=== PATIENT | male | born 1995 | race Caucasian/White ===

== ENCOUNTER 2017-07-24 22:18 | Emergency (ER) | payer MEDICAID, SELFPAY ==
[2017-07-24 22:19] VITALS: BP 132/73; PULSE 116; RESP 18; TEMP 37.3; O2SAT 97; BMI 32.1
--- NOTE | 2017-07-24 22:56 | ED.VISSUMM ---
- ER Visit Summary Date of Service: 07/24/17 Chief Complaint: Fever History of Present Illness: The patient is a 21 M who presents with a fever that began today when he woke up around noon. Patient is on clindamycin for a dental infection. Patient states his fever was up to 101.7. Patient admits to a cough and some shortness of breath. Patient also admits to some pain in his chest. Patient denies any dysuria or hematuria. Patient denies any nausea or vomiting. Physical Examination: Vital signs are stable except for tachycardia of 116. Patient is in no acute distress. Patient is afebrile here. Oral mucosa is pink and moist. There is a dental carry over the right upper first molar there is some mild gingival edema around the tooth. There is no discharge or drainage. Oropharynx shows some erythema over the tonsils. There is no exudate. Neck is supple. Trachea is midline. There is no JVD or lymphadenopathy appreciated. Heart was regular and tachycardic. Lungs are clear and equal bilaterally. There is good respiratory effort noted. Abdomen is soft nontender. Cranial nerves II through XII are intact. There are no focal motor or sensory deficits noted. The remaining physical exam is within normal limits. Test Results: CBC and basic metabolic profile were obtained and were all within normal limits. PA and lateral chest x-ray was obtained and did not show any acute cardiopulmonary process. Rapid strep test was obtained and was negative. Emergency Department Course and Treatment: Patient was given IV fluids here in the emergency department. Patient was also given an albuterol aerosol here. Patient felt better on reevaluation. Patient was instructed to continue his clindamycin as prescribed until gone. Patient was instructed to follow-up with his primary care physician and dentist as scheduled. Patient understood and was agreeable with the plan. All questions were answered. Disposition: Discharge home Impression: Viral illness This note was generated with [employer] dictation software. It may contain incorrect words, spelling, and punctuation that were not noted in review of the chart prior to signing ED Disposition - Plan for ED Patient: Disposition: Home or Assisted Living Chief Complaint: General Illness Diagnosis: Viral illness
[2017-07-24] MEDS: 0.9% Normal Saline 1,000 ML 1000 ML IV (23:03)
[2017-07-24 23:17] LABS: Absolute Lymphocyte Count 0.66 X10^3/ul (0.83-4.51); Basophil# 0.01 X10^3/uL; Basophil% 0.2 % (0-1); Eosinophil# 0.05 X10^3/uL; Eosinophils% 0.9 % (0-5); Hematocrit 39.7 % (40-54); Hemoglobin 13.8 g/dl (13.0-16.5); Lymphocyte # 0.66 X10^3/ul (4.0); Lymphocyte % 12.2 % (19-41); Mean Corp Hgb Conc 34.8 g/gl (32-36); Mean Corpuscular Hgb 29.9 pg (27.0-32.0); Mean Corpuscular Volume 86.1 fL (80-94); Mean Platelet Vol. 9.8 fl (6.2-12.0); Monocyte# 0.63 X10^3/uL; Monocyte% 11.7 % (0-10); Neutrophil # 4.04 X10^3/uL (2.7-7.7); Neutrophil % 74.8 % (47-70); POSITIVE COUNT NO; POSITIVE DIFFERENTIAL NO; POSITIVE MORPHOLOGY NO; Platelet Count 176 K/mm3 (150-450); RBC Distribution Width CV 12.8 % (11.6-14.6); RBC Distribution Width SD 40.3 fl (35.1-43.9); Red Blood Count 4.61 M/mm3 (4.6-6.2); White Blood Count 5.4 K/mm3 (4.4-11.0)
--- NOTE | 2017-07-24 23:17 | RAD_ITS ---
STUDY: X-RAY CHEST REASON FOR EXAM: Male, 21 years old. Cough TECHNIQUE: Frontal and lateral views of the chest. COMPARISON: None. FINDINGS: The lungs are clear and expanded. There is no demonstrated pleural abnormality. Normal size heart. Normal mediastinum and reji. Normal visualized pulmonary arteries. Normal visualized aortic arch and descending thoracic aorta. Normal visualized thoracic spine. Normal visualized ribs, clavicles, and shoulders. There is no demonstrated abnormality of the visualized soft tissue structures of the upper abdomen. RAD/Chest PA and Lateral IMPRESSION: Normal x-ray examination of the chest. Electronically Signed: Ramirez Guzman MD at 23:34 EDT , Service support ,
[2017-07-24 23:32] LABS: Anion Gap 10 (5-15); BUN 13 mg/dL (7-18); BUN/Creat Ratio 11.9 RATIO (10-20); Calcium,Total 8.9 mg/dL (8.5-10.1); Chloride 108 mmol/L (98-107); Creatinine, Serum 1.09 mg/dL (0.70-1.30); EST Glomerular Filtration Rate 89 mL/min (>60); Est Glom Filt Rate - Afr Amer 107 mL/min (>60); Estimated Creatinine Clearance 122.55 ml/min; Glucose 92 mg/dL (74-106); Potassium 3.5 mmol/L (3.5-5.1); Sodium Level 139 mmol/L (136-145)
[2017-07-25] VITALS: PULSE 100; RESP 16
[2017-07-25] MEDS: Albuterol 2.5 MG/3 ML VIAL.NEB. INHALATION
--- NOTE | 2017-07-25 00:04 | ED.VISSUMM ---
- ER Visit Summary Date of Service: 07/25/17 Chief Complaint: [] History of Present Illness: The patient is a 21 M [] Physical Examination: [] Test Results: [] Emergency Department Course and Treatment: [] Treatment Plan: [] Disposition: [] Impression: [] This note was generated with [employer] dictation software. It may contain incorrect words, spelling, and punctuation that were not noted in review of the chart prior to signing ED Disposition - Plan for ED Patient: Disposition: Home or Assisted Living Chief Complaint: General Illness Diagnosis: Viral illness Instructions: ED Cavity Dental, ED Fever Control Referrals: Maged Hernandez MD [Primary Care Provider] -
[2017-07-25 00:16] VITALS: BP 144/85; PULSE 92; RESP 16; TEMP 36.9; O2SAT 96
== END 2017-07-25 00:17 | disposition home or self-care (01) ==
PROVIDERS: Emergency Provider Emergency Medicine; Family Provider Family Medicine; PCP Family Medicine
DX: B34.9 Viral infection, unspecified (principal); F17.200 Nicotine dependence, unspecified, uncomplicated; K04.7 Periapical abscess without sinus
CPT/HCPCS: 71046; 80048; 85025; 87880; 94640; 99283; J7030

== ENCOUNTER 2018-08-26 08:50 | Emergency (ER) | payer SELFPAY ==
[2018-08-26 08:51] VITALS: BP 160/91; PULSE 88; RESP 17; TEMP 36.5; O2SAT 98; BMI 42.0
--- NOTE | 2018-08-26 09:09 | CT_ITS ---
STUDY: CTA OF THE BRAIN REASON FOR EXAM: Male, 22 years old. Two-week history of headaches. Lightheadedness. RADIATION DOSAGE (If Supplied By Facility): CTDIvol = ( 27.51 ) mGy, DLP = ( 1222.42 ) mGycm TECHNIQUE: CT angiography was performed with a multi-detector CT scanner. Data acquisition was obtained from the skull base through the vertex following intravenous administration of 100 IV Isovue 370. MIP images were reconstructed from the axial data set. Post-processing of the angiographic images was performed, with multiplanar reformation and 3D reconstruction. Individualized dose optimization techniques were used for this CT. COMPARISON: None. FINDINGS: Normal bilateral petrous carotid arteries. Normal right cavernous carotid artery with a normal supraclinoid bifurcation. Normal left cavernous carotid artery with a normal supraclinoid bifurcation. Normal right A1 segments of the anterior cerebral artery. Normal left A1 segments of the anterior cerebral artery. Normal intact anterior communicating artery (ACOM). Normal bilateral A2 segments of the anterior cerebral arteries. Normal right M1 and M2 segments of the middle cerebral arteries, with a normal M1 bifurcation. Normal left M1 and M2 segments of the middle cerebral arteries, with a normal M1 bifurcation. Normal right posterior communicating artery (PCOM). Normal left posterior communicating artery (PCOM). Normal bilateral vertebral arteries. Normal basilar artery with a normal basilar bifurcation. The visualized bilateral superior cerebellar (SCA) arteries are normal. Normal bilateral P1, P2 and visualized P3 segments of the posterior cerebral arteries. There is no demonstrated aneurysm of the [place]. Mucosal thickening of the maxillary sinuses bilaterally. Focal mucosal thickening measuring 5.7 mm along the anterior wall of the right sphenoid sinus. Mucosal thickening of the ethmoid sinuses. CT/CTA Head W/WO Contrast IMPRESSION: Normal [place] without a demonstrated aneurysm or hemodynamically significant stenosis. Electronically Signed: Sergio Rebollar, at 10:39 EDT , Service support ,
[2018-08-26] MEDS: 0.9% Normal Saline 1,000 ML 1000 ML IV (09:39)
[2018-08-26] MEDS: Ketorolac 30 MG/ML Syringe IV (09:40)
[2018-08-26] MEDS: Ondansetron 4 MG/2 ML Vial IV (09:40)
[2018-08-26 09:50] LABS: Absolute Lymphocyte Count 2.31 X10^3/ul (0.83-4.51); Absolute Neutrophil Count 3.7 X10^3/uL (2.0-7.7); Basophil# 0.02 X10^3/uL; Basophil% 0.3 % (0-1); Eosinophil# 0.31 X10^3/uL; Eosinophils% 4.6 % (0-5); Hematocrit 43.5 % (40-54); Hemoglobin 15.1 g/dl (13.0-16.5); Lymphocyte # 2.31 X10^3/ul (4.0); Lymphocyte % 34.2 % (19-41); Mean Corp Hgb Conc 34.7 g/gl (32-36); Mean Corpuscular Hgb 29.7 pg (27.0-32.0); Mean Corpuscular Volume 85.5 fL (80-94); Mean Platelet Vol. 9.8 fl (6.2-12.0); Monocyte# 0.46 X10^3/uL; Monocyte% 6.8 % (0-10); Neutrophil # 3.65 X10^3/uL (2.7-7.7); Platelet Count 192 K/mm3 (150-450); RBC Distribution Width CV 13.1 % (11.6-14.6); Red Blood Count 5.09 M/mm3 (4.6-6.2); White Blood Count 6.8 K/mm3 (4.4-11.0)
[2018-08-26 09:51] LABS: POSITIVE COUNT NO; POSITIVE DIFFERENTIAL NO; POSITIVE MORPHOLOGY NO
[2018-08-26 10:03] LABS: Anion Gap 6 (5-15); BUN 11 mg/dL (7-18); BUN/Creat Ratio 12.2 RATIO (10-20); Calcium,Total 8.6 mg/dL (8.5-10.1); Chloride 108 mmol/L (98-107); EST Glomerular Filtration Rate 109 mL/min (>60); Est Glom Filt Rate - Afr Amer 132 mL/min (>60); Estimated Creatinine Clearance 147.15 ml/min; Glucose 94 mg/dL (74-106); Sodium Level 139 mmol/L (136-145)
--- NOTE | 2018-08-26 11:07 | ED.DCSUM_ITS ---
- ER Visit Summary Date of Service: 08/26/18 Chief Complaint: Headache History of Present Illness: The patient is a 22 M with a 2-week history of migraine type headache is been waxing and waning. Patient states he used to have migraines in the past but has not had for quite some time. He does report light sensitivity, blurred vision, and nausea. He states there are several times where the pain will suddenly get worse after he coughs. He denies any recent head injury. No recent URI symptoms. Denies family history of aneurysms. Physical Examination: Vital signs significant for blood pressure of 160/91. Patient lying in a darkened room in no acute distress. Head and neck examination unremarkable. No meningismus. Heart is regular rate and rhythm. Lung sounds with mild expiratory wheeze. Abdomen is soft nontender. Neuro exam is normal. Test Results: CBC and chemistry studies are unremarkable. CTA of the head reveals no evidence of aneurysm. Mild mucosal thickening of the sinuses is noted. Emergency Department Course and Treatment: Patient drove himself to the ER did not have another ride home, therefore only given Toradol and Zofran along with IV fluids. On repeat evaluation he does feel improved. Test results are discussed with him. He will be given prescriptions for Toradol, Reglan, and Benadryl which he can use at home for his migraine symptoms. If migraines become more frequent he will follow with his primary care physician to be started on more long-term medication. Treatment Plan: [] Disposition: Discharge Impression: Migraine, improved This note was generated with [employer] dictation software. It may contain incorrect words, spelling, and punctuation that were not noted in review of the chart prior to signing ED Disposition - Plan for ED Patient: Disposition: Home or Assisted Living Instructions: ED Headache Migraine Prescriptions: DiphenhydrAMINE [Benadryl] 50 mg PO Q6H PRN PRN #14 capsule PRN Reason: Migraine Symptoms Ketorolac [Toradol] 10 mg PO Q6H PRN #14 tablet PRN Reason: Migraine Symptoms Metoclopramide [Reglan] 10 mg PO 4X/DAY PRN #14 tablet PRN Reason: Headache Referrals: Bel Guan DO [STAFF PHYSICIAN] - As Needed
[2018-08-26 11:24] VITALS: BP 143/91; PULSE 63; RESP 17
== END 2018-08-26 11:30 | disposition home or self-care (01) ==
PROVIDERS: Emergency Provider Emergency Medicine
DX: G43.909 Migraine, unspecified, not intractable, without status migrainosus (principal); Z72.0 Tobacco use
CPT/HCPCS: 70496; 80048; 85025; 96361; 96374; 96375; 99283; J7030; Q9967; A4216; J2405